=== PATIENT | female | born 1970 | race African-American/Black ===

== ENCOUNTER 2018-02-07 01:35 | Emergency (ER) | payer OTHER ==
[~2018-02-07] VITALS: Ht 170.2 cm; Wt 88.6 kg
[~2018-02-07 01:35] MED LIST: ESTRACE2 MG OR; PROVENTIL INH17 GM IN; PROVERA5 MG OR
[2018-02-07] MEDS ORDERED: SYMBICORT1 AE1 IN (01:43)
[2018-02-07] MEDS ORDERED: VOLTAREN - GENE75 MG PO (02:44)
[2018-02-07 02:56] VITALS: BP 138/89
== END 2018-02-07 02:57 | disposition home or self-care (01) | DRG 556 ==
LOC: ED 01:35
DX: M79.604 Pain in right leg (principal); M25.561 Pain in right knee; M25.551 Pain in right hip; M17.11 Unilateral primary osteoarthritis, right knee; M16.11 Unilateral primary osteoarthritis, right hip

== ENCOUNTER 2022-10-03 14:28 | Emergency (ER) | payer OTHER ==
[~2022-10-03] VITALS: Ht 170.2 cm; Wt 75.0 kg
[2022-10-03] VITALS (16 sets, daily range): BP systolic 145–177; BP diastolic 91–115
[~2022-10-03 14:28] MED LIST changes: +SYMBICORT1 AE1 IN; +VOLTAREN - GENE75 MG PO
[2022-10-03 15:54] LABS: BASO% 0.4 % (0-3); EOS% 8.5 % (0-8); HEMATOCRIT 39.8 % (37.0-47.0); HEMOGLOBIN 13.3 g/dl (12.0-16.0); IMMATURE GRANULOCYTES 0.2 % (0.0-5.0); LYMPH% 12.5 % (15-41); MEAN CELL VOLUME 96.8 fL CALC (80.0-100.0); MEAN CORPUSCULAR HGB 32.4 pG CALC (26.0-32.0); MEAN CORPUSCULAR HGB CONC 33.4 g/dL CAL (32.0-36.0); MONO% 7.5 % (2-13); NEUT# 7.43 thou/uL (2.00-7.15); NEUT% 70.9 % (42-76); RED BLOOD COUNT 4.11 mill/uL (4.20-5.60); RED CELL DISTRI WIDTH 14.1 % (11.5-15.5)
[2022-10-03 15:59] LABS: URINE BILIRUBIN - DIPSTICK NEGATIVE (NEGATIVE); URINE BLOOD DIPSTICK NEGATIVE (NEGATIVE); URINE COLOR YELLOW; URINE GLUCOSE - DIPSTICK NEGATIVE (NEGATIVE); URINE KETONE NEGATIVE (NEGATIVE); URINE LEUK ESTERASE NEGATIVE (NEGATIVE); URINE PH 7.5 (4.5-8.0); URINE PROTEIN - DIPSTICK NEGATIVE (NEG-TRACE); URINE SPECIFIC GRAVITY 1.015; URINE UROBILINOGEN - DIPSTICK 0.2 E.U./dL (0.2)
[2022-10-03 16:04] LABS: URINE NITRITE - DIPSTICK NEGATIVE (Negative)
[2022-10-03 16:08] LABS: ALBUMIN 4.5 g/dL (3.2-5.0); ALKALINE PHOSPHATASE 73 u/l (38-126); ANION GAP 14 (6-22 (CALC)); BILIRUBIN, TOTAL 0.4 mg/dL (0.02-1.3); BUN 12 mg/dL (7-17); BUN/CREATININE RATIO 16 (12-20 (CALC)); CARBON DIOXIDE 27 mmol/l (22-30); CHLORIDE 104 mmol/l (95-108); CREATININE 0.8 mg/dL (0.5-1.0); GFR FOR AFR.AMER. > 60 ML/MIN (>=60 (CALC)); GFR OTHER RACES > 60 ML/MIN (>=60 (CALC)); POTASSIUM 3.9 mmol/l (3.5-5.1); SGOT/AST 27 u/l (14-36); SODIUM 141 mmol/l (137-146); TOTAL PROTEIN 7.6 g/dL (6.3-8.2)
[2022-10-03] MEDS ORDERED: DEXAMETHASON6 MG PO (19:47)
[2022-10-03] MEDS ORDERED: ONDANSETRON4 MG PO (19:47)
[2022-10-03] MEDS ORDERED: COZAAR25 MG PO (20:02)
== END 2022-10-03 20:18 | disposition home or self-care (01) | DRG 816 ==
LOC: ED 14:28
PROVIDERS: Nurse Practitioner
DX: R59.1 Generalized enlarged lymph nodes (principal); J02.9 Acute pharyngitis, unspecified
CPT/HCPCS: Q9967

== ENCOUNTER 2023-07-10 12:45 | Observation (INO) | payer OTHER ==
[2023-07-10] VITALS (36 sets, daily range): BP systolic 125–164; BP diastolic 73–118
[~2023-07-10] VITALS: Ht 170.2 cm; Wt 67.4 kg
[~2023-07-10 12:45] MED LIST changes: +COZAAR25 MG PO; +DEXAMETHASON6 MG PO; +ONDANSETRON4 MG PO
[2023-07-10 13:18] LABS: BASO% 0.5 % (0-3); EOS% 5.1 % (0-8); HEMATOCRIT 38.2 % (37.0-47.0); HEMOGLOBIN 13.3 g/dl (12.0-16.0); IMMATURE GRANULOCYTES 0.2 % (0.0-5.0); LYMPH% 20.6 % (15-41); MEAN CELL VOLUME 101.1 fL CALC (80.0-100.0); MEAN CORPUSCULAR HGB 35.2 pG CALC (26.0-32.0); MEAN CORPUSCULAR HGB CONC 34.8 g/dL CAL (32.0-36.0); MONO% 10.6 % (2-13); NEUT# 5.75 thou/uL (2.00-7.15); RED BLOOD COUNT 3.78 mill/uL (4.20-5.60); RED CELL DISTRI WIDTH 16.1 % (11.5-15.5)
[2023-07-10 13:43] LABS: PROTHROMBIN TIME 9.8 SECONDS (9.0-12.5)
[2023-07-10 13:45] LABS: ALBUMIN 4.8 g/dL (3.2-5.0); ALKALINE PHOSPHATASE 77 u/l (38-126); ANION GAP 14 (6-22 (CALC)); BUN 6 mg/dL (7-17); BUN/CREATININE RATIO 9 (12-20 (CALC)); CARBON DIOXIDE 30 mmol/l (22-30); CHLORIDE 97 mmol/l (95-108); CREATININE 0.7 mg/dL (0.5-1.0); GFR FOR AFR.AMER. > 60 ML/MIN (>=60 (CALC)); GFR OTHER RACES > 60 ML/MIN (>=60 (CALC)); POTASSIUM 3.7 mmol/l (3.5-5.1); SODIUM 137 mmol/l (137-146); TOTAL CHOLESTEROL 232 mg/dl (0-199); TOTAL TRIGLYCERIDES 279 mg/dl (0-149); VLDL CHOLESTROL 56 mg/dl (2-49 (CALC))
[2023-07-10 14:02] LABS: BILIRUBIN, TOTAL 0.6 mg/dL (0.02-1.3); CALCULATED LDLCHOLESTEROL 54 mg/dL (62-129 (CALC)); CHOLESTEROL HDL RATIO 1.9 (<4.4 (CALC)); HDL CHOLESTEROL 122 mg/dL (39.0-59.0); SGOT/AST 74 u/l (14-36)
[2023-07-10 14:22] LABS: TSH, 3RD GENERATION 1.25 uIU/mL (0.47 - 4.68)
[2023-07-10 18:42] LABS: URINE BILIRUBIN - DIPSTICK Negative (NEGATIVE); URINE BLOOD DIPSTICK Negative (NEGATIVE); URINE GLUCOSE - DIPSTICK Negative (NEGATIVE); URINE KETONE Negative (NEGATIVE); URINE LEUK ESTERASE Negative (NEGATIVE); URINE NITRITE - DIPSTICK Negative (Negative); URINE PROTEIN - DIPSTICK Negative (NEG-TRACE); URINE SPECIFIC GRAVITY <=1.005; URINE UROBILINOGEN - DIPSTICK 0.2 E.U./dL (0.2)
[2023-07-10 18:46] LABS: URINE COLOR Yellow
[2023-07-11] VITALS (45 sets, daily range): BP systolic 116–174; BP diastolic 70–117
[2023-07-11 06:22] LABS: BASO% 0.6 % (0-3); EOS% 10.6 % (0-8); HEMATOCRIT 33.5 % (37.0-47.0); HEMOGLOBIN 11.6 g/dl (12.0-16.0); IMMATURE GRANULOCYTES 0.2 % (0.0-5.0); LYMPH% 25.5 % (15-41); MEAN CELL VOLUME 101.5 fL CALC (80.0-100.0); MEAN CORPUSCULAR HGB 35.2 pG CALC (26.0-32.0); MEAN CORPUSCULAR HGB CONC 34.6 g/dL CAL (32.0-36.0); NEUT# 2.66 thou/uL (2.00-7.15); NEUT% 53.1 % (42-76); RED BLOOD COUNT 3.3 mill/uL (4.20-5.60); RED CELL DISTRI WIDTH 16.1 % (11.5-15.5)
[2023-07-11 06:38] LABS: ALBUMIN 3.9 g/dL (3.2-5.0); ALKALINE PHOSPHATASE 67 u/l (38-126); BUN 3 mg/dL (7-17); BUN/CREATININE RATIO 4 (12-20 (CALC)); CARBON DIOXIDE 27 mmol/l (22-30); CHLORIDE 105 mmol/l (95-108); CREATININE 0.8 mg/dL (0.5-1.0); GFR FOR AFR.AMER. > 60 ML/MIN (>=60 (CALC)); GFR OTHER RACES > 60 ML/MIN (>=60 (CALC)); MAGNESIUM 1.1 mg/dL (1.6-2.3); SGOT/AST 51 u/l (14-36); SODIUM 140 mmol/l (137-146)
[2023-07-11 06:47] LABS: ANION GAP 11 (6-22 (CALC)); BILIRUBIN, TOTAL 0.9 mg/dL (0.02-1.3); POTASSIUM 2.7 mmol/l (3.5-5.1); TOTAL PROTEIN 6.1 g/dL (6.3-8.2)
[2023-07-11 10:28] LABS: BASO% 0.4 % (0-3); EOS% 11.1 % (0-8); HEMATOCRIT 33.8 % (37.0-47.0); HEMOGLOBIN 11.7 g/dl (12.0-16.0); IMMATURE GRANULOCYTES 0.2 % (0.0-5.0); LYMPH% 24.5 % (15-41); MEAN CELL VOLUME 100.9 fL CALC (80.0-100.0); MEAN CORPUSCULAR HGB 34.9 pG CALC (26.0-32.0); MEAN CORPUSCULAR HGB CONC 34.6 g/dL CAL (32.0-36.0); MONO% 9.2 % (2-13); NEUT# 2.56 thou/uL (2.00-7.15); NEUT% 54.6 % (42-76); RED BLOOD COUNT 3.35 mill/uL (4.20-5.60)
[2023-07-12] VITALS (8 sets, daily range): BP systolic 108–151; BP diastolic 66–102
[2023-07-12] MEDS ORDERED: ADLT ASA LOW81 MG PO (04:44)
[2023-07-12] MEDS ORDERED: CIPROFLOXACN500 MG PO (04:45)
[2023-07-12] MEDS ORDERED: ATORVASTATIN CA40 MG PO (04:45)
[2023-07-12] MEDS ORDERED: METRONIDAZOLE500 MG PO (04:45)
[2023-07-12] MEDS ORDERED: PROTONIX40 M2 PO (04:46)
[2023-07-12 08:00] LABS: BASO% 0.6 % (0-3); EOS% 13.6 % (0-8); HEMATOCRIT 32.1 % (37.0-47.0); HEMOGLOBIN 11.3 g/dl (12.0-16.0); IMMATURE GRANULOCYTES 0.2 % (0.0-5.0); LYMPH% 22.4 % (15-41); MEAN CELL VOLUME 102.6 fL CALC (80.0-100.0); MEAN CORPUSCULAR HGB 36.1 pG CALC (26.0-32.0); MEAN CORPUSCULAR HGB CONC 35.2 g/dL CAL (32.0-36.0); NEUT# 2.75 thou/uL (2.00-7.15); NEUT% 55.2 % (42-76); RED BLOOD COUNT 3.13 mill/uL (4.20-5.60)
[2023-07-12 08:16] LABS: ALBUMIN 3.7 g/dL (3.2-5.0); ALKALINE PHOSPHATASE 66 u/l (38-126); ANION GAP 9 (6-22 (CALC)); BILIRUBIN, TOTAL 0.9 mg/dL (0.02-1.3); BUN 3 mg/dL (7-17); BUN/CREATININE RATIO 4 (12-20 (CALC)); CARBON DIOXIDE 24 mmol/l (22-30); CHLORIDE 112 mmol/l (95-108); CREATININE 0.7 mg/dL (0.5-1.0); GFR FOR AFR.AMER. > 60 ML/MIN (>=60 (CALC)); GFR OTHER RACES > 60 ML/MIN (>=60 (CALC)); POTASSIUM 3.1 mmol/l (3.5-5.1); SGOT/AST 60 u/l (14-36); SODIUM 142 mmol/l (137-146); TOTAL PROTEIN 6.2 g/dL (6.3-8.2)
[2023-07-12 08:19] LABS: MAGNESIUM 2.4 mg/dL (1.6-2.3)
== END 2023-07-12 13:42 | disposition home or self-care (01) | DRG 149 ==
LOC: ED 12:45 → ED-I 18:55 → ED 19:10 → ICU 19:11
PROVIDERS: Family Medicine; Nurse Practitioner; Nurse Practitioner Family; ADMIT Student in an Organized Health Care Education/Training Program; ATTEND Student in an Organized Health Care Education/Training Program
DX: R42 Dizziness and giddiness (principal); K50.10 Crohn's disease of large intestine without complications; H53.8 Other visual disturbances; R20.2 Paresthesia of skin; K52.9 Noninfective gastroenteritis and colitis, unspecified; J45.909 Unspecified asthma, uncomplicated; D64.9 Anemia, unspecified; Z20.822 Contact with and (suspected) exposure to COVID-19
CPT/HCPCS: J1650; J3475; Q9967